=== PATIENT | female | born 1935 | race Caucasian/White ===

== ENCOUNTER 2016-03-15 11:27 | Day surgery (SDC) | payer MEDICARE, BC ==
[2016-03-15 11:52] VITALS: RESP 16
[2016-03-15] MEDS ORDERED: TRIAMCINOLONE ACETONIDE 40 MG/ML SUS ONE (12:14)
[2016-03-15] MEDS ORDERED: LIDOCAINE HCL 1% MPF SOL ONE (12:27)
[2016-03-15 12:48] VITALS: PULSE 63; TEMP 98.8; O2SAT 97
[2016-03-15 12:54] VITALS: BP 147/71
== END 2016-03-15 13:05 | disposition home or self-care (01) | DRG 552 ==
LOC: SURG 11:27
PROVIDERS: ATTEND Nurse Anesthetist, Certified Registered
DX: M48.06 Spinal stenosis, lumbar region (principal)
CPT/HCPCS: 76000; J3300

== ENCOUNTER 2018-01-15 13:43 | Outpatient (CLI) | payer MEDICARE, BC ==
[2016-03-15 12:48] VITALS: O2SAT 97
== END 2018-01-15 13:44 | disposition home or self-care (01) | DRG 74 ==
LOC: CONVCARE 13:43
PROVIDERS: ATTEND Orthopaedic Surgery
DX: G56.03 Carpal tunnel syndrome, bilateral upper limbs (principal)
CPT/HCPCS: 73630

== ENCOUNTER 2018-01-22 08:00 | Day surgery (SDC) | payer MEDICARE, BC ==
[2018-01-22 08:27] VITALS: RESP 16
[2018-01-22] MEDS ORDERED: PROPOFOL 500 MG/50 ML EMU IV ONE (08:34)
[2018-01-22] MEDS ORDERED: LIDOCAINE HCL 1% MPF 30 SOL ONE (08:48)
[2018-01-22] MEDS ORDERED: MIDAZOLAM 2 MG/2 ML SOL ONE (08:51)
[2018-01-22] MEDS ORDERED: FENTANYL 100MCG/2ML SOL ONE (08:52)
[2018-01-22 10:22] VITALS: PULSE 51
[2018-01-22 11:06] VITALS: BP 164/58; TEMP 97.4; O2SAT 98
== END 2018-01-22 11:15 | disposition home or self-care (01) | DRG 74 ==
LOC: SURG 08:00
PROVIDERS: ATTEND Orthopaedic Surgery
DX: G56.01 Carpal tunnel syndrome, right upper limb (principal)
CPT/HCPCS: J2250; J3010; J2001; J2704

== ENCOUNTER 2018-07-31 08:16 | Day surgery (SDC) | payer MEDICARE, BC ==
[~2018-07-31 08:16] MED LIST: MIDAZOLAM 2 MG/2 ML SOL ONE
[2018-07-31] MEDS ORDERED: ACETAZOLAMIDE 250 MG PO ONE (08:33)
[2018-07-31] MEDS: TETRACAINE HCL 0.5 % 1 DROP SOL ONE ×3 (08:44→10:00)
[2018-07-31] MEDS: PHENYLEPHRINE HCL 10% OPHTHAL SOL ONE ×2 (08:44→08:58)
[2018-07-31] MEDS: KETOROLAC 0.5% OPTH 60 DROP SOL ONE ×2 (08:45→08:59)
[2018-07-31] MEDS: CYCLOPENTOLATE 1% SOL ONE ×2 (08:45→08:59)
[2018-07-31 08:51] VITALS: TEMP 97.6
[2018-07-31] MEDS ORDERED: IMPRIMIS ONE (09:55)
[2018-07-31] MEDS ORDERED: LIDOCAINE HCL 1% MPF 30 SOL ONE (09:55)
[2018-07-31] MEDS ORDERED: BSS 500 ML 500 ML IR ONE (09:55)
[2018-07-31] MEDS ORDERED: POVIDONE IODINE 5% SOL ONE (09:55)
[2018-07-31 10:26] VITALS: BP 127/68; PULSE 68; RESP 20; O2SAT 93
== END 2018-07-31 10:47 | disposition home or self-care (01) | DRG 125 ==
LOC: SURG 08:16
PROVIDERS: ATTEND Ophthalmology
DX: H25.89 Other age-related cataract (principal)
CPT/HCPCS: J2250; A9270-GY; J2001

== ENCOUNTER 2018-08-28 06:36 | Day surgery (SDC) | payer MEDICARE, BC ==
[~2018-08-28 06:36] MED LIST changes: +ACETAZOLAMIDE 250 MG PO ONE; -MIDAZOLAM 2 MG/2 ML SOL ONE
[2018-08-28] MEDS: CYCLOPENTOLATE 1% SOL ONE ×2 (06:52→07:07)
[2018-08-28] MEDS: TETRACAINE HCL 0.5 % 1 DROP SOL ONE ×3 (06:52→08:03)
[2018-08-28] MEDS: PHENYLEPHRINE HCL 10% OPHTHAL SOL ONE ×2 (06:52→07:06)
[2018-08-28] MEDS: KETOROLAC 0.5% OPTH 60 DROP SOL ONE ×2 (06:53→07:07)
[2018-08-28 06:54] VITALS: RESP 18
[2018-08-28] MEDS ORDERED: FENTANYL 100MCG/2ML SOL ONE (07:40)
[2018-08-28] MEDS ORDERED: MIDAZOLAM 2 MG/2 ML SOL ONE (07:40)
[2018-08-28] MEDS ORDERED: IMPRIMIS ONE (07:57)
[2018-08-28] MEDS ORDERED: POVIDONE IODINE 5% SOL ONE (07:58)
[2018-08-28] MEDS ORDERED: LIDOCAINE HCL 1% MPF 30 SOL ONE (07:58)
[2018-08-28] MEDS ORDERED: BSS W/ 0.5 MG P.F. EPI 1 BOTTLE ONE (07:58)
[2018-08-28 08:32] VITALS: BP 134/65; PULSE 54; TEMP 97.3; O2SAT 94
== END 2018-08-28 08:52 | disposition home or self-care (01) | DRG 125 ==
LOC: SURG 06:36
PROVIDERS: ATTEND Ophthalmology
DX: H25.89 Other age-related cataract (principal)
CPT/HCPCS: J2250; J3010; A9270-GY; J2001